=== PATIENT | female | born 2000 | race Caucasian/White ===

== ENCOUNTER 2019-03-02 12:24 | Emergency (ER) | payer SELFPAY ==
[2019-03-02] MEDS ORDERED: NA CHLORIDE 0.9% 1,000 ML ONE (13:19)
[2019-03-02 13:32] LABS: Absolute Lymphocytes (CBC) 1.4 K/uL (0.7-4.9); Absolute Monocytes 0.6 K/uL (0.1-1.3); Absolute Neutrophil 5.5 K/uL (1.8-8.0); Basophils % 0.5 % (0-1.3); Eosinophils % 7.1 % (0-4.4); Hematocrit 35.7 % (36.0-45.0); Lymphocytes % 17.1 % (15.3-44.8); MPV 10.3 fL (7.6-11.3); Monocytes % 6.9 % (3.3-12.3); RBC Red Blood Cell Count 4.03 M/uL (3.86-4.86)
[2019-03-02 13:37] LABS: Urine Blood 2+ (NEG); Urine Glucose NEGATIVE (NEG); Urine Protein NEGATIVE (NEG); Urine pH 8.5 (5.0-7.0)
[2019-03-02 13:58] LABS: BUN Blood Urea Nitrogen 7 mg/dL (7-18); Bicarbonate 26 mmol/L (21-32); Glucose Level 91 mg/dL (74-106); HCG, Quantitative 41600 mIU/mL (1-3); Potassium 3.7 mmol/L (3.5-5.1); Sodium Level 138 mmol/L (136-145)
--- NOTE | 2019-03-02 14:28 | ER ---
Nurse's Notes [facility] Name: Jaqueline Allan Age: 19 yrs Sex: Female : 2000 Arrival Date: 03/02/2019 Time: 12:28 Bed 23 Private MD: Diagnosis: Threatened ;Placenta previa Presentation: 03/02 12:36 Presenting complaint: Patient states: Im about three months and had some sg vaginal bleeding, heavy flow that began this morning, denies pain or blood clots at this time, describes the bleeding as being bright red at this time. Transition of care: patient was not received from another setting of care. Onset of symptoms was March 02, 2019. Risk Assessment: Do you want to hurt yourself or someone else? Patient reports no desire to harm self or others. Initial Sepsis Screen: Does the patient meet any 2 criteria? HR > 90 bpm. Does the patient have a suspected source of infection? No. Patient's initial sepsis screen is negative. Care prior to arrival: None. 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 - Social history:: Smoking status: Patient/guardian denies using tobacco. - Ebola Screening: : Patient negative for fever greater than or equal to 101.5 degrees Fahrenheit, and additional compatible Ebola Virus Disease symptoms Patient denies exposure to infectious person Patient denies travel to an Ebola-affected area in the 21 days before illness onset No symptoms or risks identified at this time. Screenin:11 Abuse screen: Denies threats or abuse. Denies injuries from another. Nutritional ca1 screening: No deficits noted. Tuberculosis screening: No symptoms or risk factors identified. Fall Risk IV access (20 points). Assessment: 13:11 General: Appears in no apparent distress. comfortable, Behavior is calm, cooperative, ca1 appropriate for age. Pain: Denies pain. Neuro: Level of Consciousness is awake, alert, obeys commands, Oriented to person, place, time, situation. Cardiovascular: Heart tones S1 S2 present Capillary refill < 3 seconds Patient's skin is warm and dry. Respiratory: Airway is patent Respiratory effort is even, unlabored, Respiratory pattern is regular, symmetrical. GI: Abdomen is round non-distended, Bowel sounds present X 4 quads. Abd is soft and non tender X 4 quads. : Reports vaginal bleeding that is bright red, heavy flow since today. EENT: No deficits noted. No signs and/or symptoms were reported regarding the EENT system. Derm: Skin is intact, is healthy with good turgor, Skin is pink, warm \T\ dry. Musculoskeletal: Circulation, motion, and sensation intact. Capillary refill < 3 seconds, Range of motion: intact in all extremities. 13:41 Reassessment: Patient appears in no apparent distress at this time. Patient and/or ca1 family updated on plan of care and expected duration. Pain level reassessed. Patient is alert, oriented x 3, equal unlabored respirations, skin warm/dry/pink. 13:45 Reassessment: Pt transported to Ultrasound via stretcher. ca1 14:22 Reassessment: Patient appears in no apparent distress at this time. Patient is alert, ca1 oriented x 3, equal unlabored respirations, skin warm/dry/pink. 15:08 Reassessment: Patient appears in no apparent distress at this time. Patient is alert, ca1 oriented x 3, equal unlabored respirations, skin warm/dry/pink. Dr. De La Cruz to explain diagnostic results. Vital Signs: 12:34 Temp 99.4; sg 12:34 BP 119 / 66; Pulse 115; Resp 17; Temp 99.4; Pulse Ox 99% on R/A; Weight 66.22 kg; sg Height 5 ft. 1 in. (154.94 cm); Pain 0/10; 13:41 BP 123 / 65; Pulse 86; Resp 17 S; Pulse Ox 100% on R/A; ca1 14:22 BP 103 / 68; Pulse 76; Resp 16 S; Pulse Ox 100% on R/A; ca1 15:08 BP 104 / 58; Pulse 84; Resp 16 S; Temp 99.5(O); Pulse Ox 100% on R/A; ca1 12:34 Body Mass Index 27.58 (66.22 kg, 154.94 cm) Vitals: 13:41 Heart Tones 152. ca1 ED Course: 12:28 Patient arrived in ED. rg4 12:33 Arm band placed on. sg 12:37 Triage completed. sg 12:57 Carlyle De La Cruz MD is Attending Physician. [facility] 13:00 Sarah Moreno, TONJA is Primary Nurse. ca1 13:11 Patient has correct armband on for positive identification. Placed in gown. Bed in low ca1 position. Call light in reach. Side rails up X 1. Pulse ox on. NIBP on. Warm blanket given. 13:11 Inserted saline lock: 20 gauge in right antecubital area, using aseptic technique. ca1 Blood collected. 14:00 US Transvaginal Ob In Process Unspecified. EDMS 14:26 Donald Lu MD is Referral Physician. delfina 15:10 No provider procedures requiring assistance completed. IV discontinued, intact, ca1 bleeding controlled, No redness/swelling at site. Pressure dressing applied. Administered Medications: 13:13 Drug: NS 0.9% 1000 ml Route: IV; Rate: 1 bolus; Site: right antecubital; ca1 14:30 Follow up: Response: No adverse reaction; IV Status: Completed infusion ca1 Outcome: 14:27 Discharge ordered by . delfina 15:11 Discharged to home ambulatory, with family. em 15:11 Condition: good 15:11 Discharge instructions given to patient, family, Instructed on discharge instructions, follow up and referral plans. medication usage, Demonstrated understanding of instructions, follow-up care, medications, Prescriptions given X 1. 15:12 Patient left the ED. em Signatures: Dispatcher [employer] EDMS David Abernathy, RN RN Carlyle Martinez MD MD cha Munoz, Edgar, AIR BAG CURER AIR BAG CURER Madelyn Harvey rg4 Sarah Moreno, RN RN ca1 Corrections: (The following items were deleted from the chart) 15:07 15:07 Reassessment: Patient appears in no apparent distress at this time. Patient is ca1 alert, oriented x 3, equal unlabored respirations, skin warm/dry/pink. Dr. De La Cruz at bedside to explain results of diagnostics ca1 15:10 15:06 BP 177 / 82; Pulse 54bpm; Resp 15bpm; Spontaneous; Pulse Ox 97% RA; ca1 ca1
--- NOTE | 2019-03-02 14:28 | EDPHYS ---
Physician Documentation [facility] Name: Jaqueline Allan Age: 19 yrs Sex: Female : 2000 Arrival Date: 03/02/2019 Time: 12:28 Bed 23 Private MD: ED Physician Carlyle De La Cruz HPI: 03/02 13:49 This 19 yrs old Female presents to ER via Ambulatory with complaints of [facility] Vaginal Bleeding, + Preg <12wks. 13:49 The patient presents to the emergency department with vaginal bleeding. The estimated [facility] gestational age is 14 weeks. course: care: private OB physician. Associated signs and symptoms: The patient has no apparent associated signs or symptoms. 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 - Social history:: Smoking status: Patient/guardian denies using tobacco. - Ebola Screening: : Patient negative for fever greater than or equal to 101.5 degrees Fahrenheit, and additional compatible Ebola Virus Disease symptoms Patient denies exposure to infectious person Patient denies travel to an Ebola-affected area in the 21 days before illness onset No symptoms or risks identified at this time. ROS: 13:50 Constitutional: Negative for fever, chills, and weight loss, Eyes: Negative for injury, delfina pain, redness, and discharge, ENT: Negative for injury, pain, and discharge, Neck: Negative for injury, pain, and swelling, Cardiovascular: Negative for chest pain, palpitations, and edema, Respiratory: Negative for shortness of breath, cough, wheezing, and pleuritic chest pain, Abdomen/GI: Negative for abdominal pain, nausea, vomiting, diarrhea, and constipation, Back: Negative for injury and pain, MS/Extremity: Negative for injury and deformity, Skin: Negative for injury, rash, and discoloration, Neuro: Negative for headache, weakness, numbness, tingling, and seizure, Psych: Negative for depression, anxiety, suicide ideation, homicidal ideation, and hallucinations, Allergy/Immunology: Negative for hives, rash, and allergies, Endocrine: Negative for neck swelling, polydipsia, polyuria, polyphagia, and marked weight changes. 13:50 : Positive for vaginal bleeding. Exam: 13:50 Constitutional: This is a well developed, well nourished patient who is awake, alert, delfina and in no acute distress. Head/Face: Normocephalic, atraumatic. Eyes: Pupils equal round and reactive to light, extra-ocular motions intact. Lids and lashes normal. Conjunctiva and sclera are non-icteric and not injected. Cornea within normal limits. Periorbital areas with no swelling, redness, or edema. ENT: Nares patent. No nasal discharge, no septal abnormalities noted. Tympanic membranes are normal and external auditory canals are clear. Oropharynx with no redness, swelling, or masses, exudates, or evidence of obstruction, uvula midline. Mucous membranes moist. Neck: Trachea midline, no thyromegaly or masses palpated, and no cervical lymphadenopathy. Supple, full range of motion without nuchal rigidity, or vertebral point tenderness. No Meningismus. Chest/axilla: Normal chest wall appearance and motion. Nontender with no deformity. No lesions are appreciated. Cardiovascular: Regular rate and rhythm with a normal S1 and S2. No gallops, murmurs, or rubs. Normal PMI, no JVD. No pulse deficits. Respiratory: Lungs have equal breath sounds bilaterally, clear to auscultation and percussion. No rales, rhonchi or wheezes noted. No increased work of breathing, no retractions or nasal flaring. Abdomen/GI: Soft, non-tender, with normal bowel sounds. No distension or tympany. No guarding or rebound. No evidence of tenderness throughout. Back: No spinal tenderness. No costovertebral tenderness. Full range of motion. Skin: Warm, dry with normal turgor. Normal color with no rashes, no lesions, and no evidence of cellulitis. MS/ Extremity: Pulses equal, no cyanosis. Neurovascular intact. Full, normal range of motion. Neuro: Awake and alert, GCS 15, oriented to person, place, time, and situation. Cranial nerves II-XII grossly intact. Motor strength 5/5 in all extremities. Sensory grossly intact. Cerebellar exam normal. Normal gait. Psych: Awake, alert, with orientation to person, place and time. Behavior, mood, and affect are within normal limits. Vital Signs: 12:34 Temp 99.4; sg 12:34 BP 119 / 66; Pulse 115; Resp 17; Temp 99.4; Pulse Ox 99% on R/A; Weight 66.22 kg; sg Height 5 ft. 1 in. (154.94 cm); Pain 0/10; 13:41 BP 123 / 65; Pulse 86; Resp 17 S; Pulse Ox 100% on R/A; ca1 14:22 BP 103 / 68; Pulse 76; Resp 16 S; Pulse Ox 100% on R/A; ca1 15:08 BP 104 / 58; Pulse 84; Resp 16 S; Temp 99.5(O); Pulse Ox 100% on R/A; ca1 12:34 Body Mass Index 27.58 (66.22 kg, 154.94 cm) sg MDM: 12:57 Patient medically screened. [facility] 13:51 Data reviewed: vital signs, nurses notes, lab test result(s), radiologic studies, delfina ultrasound. 03/02 12:59 Order name: Quantitative Hcg; Complete Time: 14:25 [facility] 03/02 12:59 Order name: Abo/rh Typing; Complete Time: 14:25 [facility] 03/02 12:59 Order name: Basic Metabolic Panel; Complete Time: 14:25 [facility] 03/02 12:59 Order name: CBC with Diff; Complete Time: 13:59 [facility] 03/02 13:18 Order name: Urine Dipstick--Ancillary (enter results); Complete Time: 13:59 [place] 03/02 13:18 Order name: Urine --Ancillary (enter results); Complete Time: 13:59 [place] 03/02 12:59 Order name: Urine Test (obtain specimen); Complete Time: 13:09 [facility] 03/02 12:59 Order name: IV Saline Lock; Complete Time: 13:14 [facility] 03/02 12:59 Order name: Labs collected and sent; Complete Time: 13:15 [facility] 03/02 12:59 Order name: NPO; Complete Time: 13:15 [facility] 03/02 12:59 Order name: Urine Dipstick-Ancillary (obtain specimen); Complete Time: 13:09 [facility] 03/02 12:59 Order name: US Transvaginal Ob delfina Administered Medications: 13:13 Drug: NS 0.9% 1000 ml Route: IV; Rate: 1 bolus; Site: right antecubital; ca1 14:30 Follow up: Response: No adverse reaction; IV Status: Completed infusion ca1 Disposition: 03/02/19 14:27 Discharged to Home. Impression: Threatened , Placenta previa. - Condition is Stable. - Discharge Instructions: Threatened Miscarriage, Vaginal Bleeding During , Second Trimester, Threatened Miscarriage, [id number], Pelvic Rest, Vaginal Bleeding During , Second Trimester, [id number]. - Prescriptions for Vitamin 27- 0.8 mg Oral Tablet - take 1 tablet by ORAL route once daily; 30 tablet. - Medication Reconciliation Form, Thank You Letter, Antibiotic Education, Prescription Opioid Use form. - Follow up: Private Physician; When: 2 - 3 days; Reason: Recheck today's complaints, Continuance of care, Re-evaluation by your physician. Follow up: Donald Lu; When: 2 - 3 days; Reason: Recheck today's complaints, Re-evaluation by your physician. - Problem is new. - Symptoms have improved. Signatures: Dispatcher [employer] EDDavid Irvin, RN RN Carlyle Martinez MD MD cha Munoz, Edgar, VICE PRESIDENT RESIDENTIAL [employer] SALES VICE PRESIDENT [employer]IDENTIAL [employer] SALES em Sarah Moreno RN RN ca1 Corrections: (The following items were deleted from the chart) 15:12 14:27 03/02/2019 14:27 Discharged to Home. Impression: Threatened ; Placenta em previa. Condition is Stable. Discharge Instructions: Threatened Miscarriage, Vaginal Bleeding During , Second Trimester, Threatened Miscarriage, [id number], Pelvic Rest, Vaginal Bleeding During , Second Trimester, [id number]. Prescriptions for Vitamin 27-0.8 mg Oral Tablet - take 1 tablet by ORAL route once daily; 30 tablet. and Forms are Medication Reconciliation Form, Thank You Letter, Antibiotic Education, Prescription Opioid Use. Follow up: Private Physician; When: 2 - 3 days; Reason: Recheck today's complaints, Continuance of care, Re-evaluation by your physician. Follow up: Donald Lu; When: 2 - 3 days; Reason: Recheck today's complaints, Re-evaluation by your physician. Problem is new. Symptoms have improved. delfina
--- NOTE | 2019-03-02 14:37 | RAD REPORT ---
EXAM DESCRIPTION: US - Transvaginal OB - 03/02/2019 2:08 pm CLINICAL HISTORY: Abdominal pain, , cramping COMPARISON: None. FINDINGS: A single cephalic presenting gestation is identified. Four-chamber heart view is grossly n ormal for age. Heart rate normal. The intracranial contents and spine are grossly normal. Anato judi assessment is limited at 14 week gestational age. Anatomy is as expected. I measurements are as follows: BPD:2.55 Centimeters 14 weeks 3 days HC:9.62 Centimeters 14 weeks 3 days AC:7.74 Centimeters 14 weeks 1 day HL:1.42 Centimeters 13 weeks 6 days FL:1.26 Centimeters 13 weeks 5 days The estimated gestational age (EGA) is 14 weeks 1 day with an PIYUSH of 08/30/2019. ratios are no rmal or within acceptable limits. The placenta is grade 0, posterior in location. Placenta is low lyi ng. The amniotic fluid volume is normal. No maternal adnexal abnormality. IMPRESSION: 1. Single gestation with an EGA of 14 weeks 1 day and an PIYUSH of the 08/30/2019. 2. No abnormalities are identifiable. ratios are normal or within acceptable limits. 3. Grade 0, posterior placenta with placenta low-lying. Follow-up sonography subsequent in can evaluate for the usual superior migration with uterine growth. . 4. Amniotic fluid volume is normal.
== END 2019-03-02 15:12 | disposition home or self-care (01) ==
LOC: ER 12:24
DX: O20.0 Threatened abortion (principal); O44.12 Complete placenta previa with hemorrhage, second trimester; Z3A.14 14 weeks gestation of pregnancy
CPT/HCPCS: 36415; 76817; 80048; 81003; 81025; 84702; 85025; 86900; 86901; 96360; 99284; J7030

== ENCOUNTER 2019-05-15 09:10 | Emergency (ER) | payer OTHER, SELFPAY ==
--- OUTSIDE RECORDS SUMMARY | 2019-05-15 09:12 | XMS REPORT ---
:2000 [facility] Address [address] [place] [address] Care Team Providers Name Role Phone Unavailable Unavailable Unavailable Problems This patient has no known problems. Allergies, Adverse Reactions, Alerts This patient has no known allergies or adverse reactions. Medications This patient has no known medications.
--- OUTSIDE RECORDS SUMMARY | 2019-05-15 09:12 | XMS REPORT | Summary of Care ---
:2000 Author Organization [facility] Address [address] [place] [id number] Care Team Providers Name Role Phone Pcp, Patient Does Not Have A Unavailable Pcp, Patient Does Not Have A Primary Care Provider Reason for Visit Reason Comments New OB Visit Vaginal Discharge Encounter Details Date Type Department Care Team Description 04/20/2019 Initial [facility] McfarlaneLis MD Supervision of high-risk of young primigravida (Primary Dx); Visit Healthcare- [address] [place] [address] Vaginal discharge; Yoan NEWMAN 21 weeks gestation of [address] [place] [address] [address] [place] [address] [phone] Allergies No Known Allergiesdocumented as of this encounter (statuses as of 04/22/2019) Medications Medication Sig Dispensed Refills Start Date End Date Status 25/iron Take by mouth. 0 Active fum/folic/dha (-1 ORAL) documented as of this encounter (statuses as of 04/22/2019) Active Problems Estimated Date of Delivery Comments Yes 08/31/2019 No additional problems on filedocumented as of this encounter (statuses as of ) Social History Tobacco Use Types Packs/Day Years Used Date Never Smoker Smokeless Tobacco: Never Used Alcohol Use Drinks/Week oz/Week Comments Not Currently Estimated Date of Delivery Comments Yes 08/31/2019 Sex Assigned at Date Recorded Not on file Job Start Date Occupation Industry Not on file Not on file Not on file Travel History Travel Start Travel End No recent travel history available. documented as of this encounter Last Filed Vital Signs Vital Sign Reading Time Taken Comments Blood Pressure 123/71 04/20/2019 2:58 PM CDT Pulse 82 04/20/2019 2:58 PM CDT Temperature 36.7 C (98 F) 04/20/2019 2:58 PM CDT Respiratory Rate 18 04/20/2019 2:58 PM CDT Oxygen Saturation - - Inhaled Oxygen Concentration - - Weight 68.3 kg (150 lb 9.6 oz) 04/20/2019 2:58 PM CDT Height 154.9 cm (5' 1") 04/20/2019 2:58 PM CDT Body Mass Index 28.46 04/20/2019 2:58 PM CDT documented in this encounter Progress Notes Lis Mcfarlane MD - 04/20/2019 2:15 PM CDT Chief complaint: Chief Complaint Patient presents with New OB Visit Vaginal Discharge HPI Jaqueline Allan is a 19 year old female @ 21w2d by reported PIYUSH presented for [facility], transfer care from [place]. States that has been uncomplicated so far. PIYUSH 08/31/19 based on USG. States that she had anatomy scan last month and was wnl. Histories OB History Para Term AB Living 1 SAB TAB Ectopic Multiple Live Births # Outcome Date GA Lbr Hosea/2nd Weight Sex Delivery Anes PTL Lv 1 Current Past Medical History: Diagnosis Date Genital herpes 2017 1 & 2 History reviewed. No pertinent family history. No family status information on file. Past Surgical History: Procedure Laterality Date APPENDECTOMY Social History Socioeconomic History Marital status: Single Spouse name: Not on file Number of children: Not on file Years of education: Not on file Highest education level: Not on file Occupational History Not on file Social Needs Financial resource strain: Not on file Food insecurity: Worry: Not on file Inability: Not on file Transportation needs: Medical: Not on file Non-medical: Not on file Tobacco Use Smoking status: Never Smoker Smokeless tobacco: Never Used Substance and Sexual Activity Alcohol use: Not Currently Drug use: Never Sexual activity: Yes Partners: Male Lifestyle Physical activity: Days per week: Not on file Minutes per session: Not on file Stress: Not on file Relationships Social connections: Talks on phone: Not on file Gets together: Not on file Attends taoist service: Not on file Active member of club or organization: Not on file Attends meetings of clubs or organizations: Not on file Relationship status: Not on file Intimate partner violence: Fear of current or ex partner: Not on file Emotionally abused: Not on file Physically abused: Not on file Forced sexual activity: Not on file Other Topics Concern Not on file Social History Narrative Not on file Social History Substance and Sexual Activity Sexual Activity Yes Partners: Male Genetic Screen Autism / Mental Retardation: No Pati Disease: No Congenital Heart Defect: No Cystic Fibrosis: No Down Syndrome: No Familial Dysautonomia: No Hemophilia or other Blood Disorders: No [place] Chorea: No Maternal Metabolic Disorder--specify (eg. Type 1 Diabetes, PKU): No Muscular Dystrophy: No Neural Tube Defect: No Recurrent Loss or a Stillbirth: No Sickle Cell Disease or Trait: No Coy Sachs: No Teratological Substances (specify type & strength/dose) since LMP: No Thalassemia: No Other Inherited Genetic or Chromosomal Disorder (specify): No No Significant History of Genetic Disorders: No Significant History of Genetic Disorders Labs None available Radiology None available Allergies Jaqueline has No Known Allergies. Medications Jaqueline has a current medication list which includes the following prescription (s): 25/iron fum/folic/dha. Review of Systems Constitutional: Negative for chills, fatigue and fever. HENT: Negative for congestion, rhinorrhea, sneezing and sore throat. Respiratory: Negative for cough, chest tightness, shortness of breath and wheezing. Breasts: Negative for discharge, mass, pain and unequal size. Cardiovascular: Negative for chest pain and palpitations. Gastrointestinal: Negative for abdominal distention, abdominal pain, anal bleeding, blood in stool, constipation, diarrhea, nausea and vomiting. Genitourinary: Positive for vaginal discharge. Negative for dysuria, urgency, frequency and vaginal bleeding. Hx of cold sores in the past; denies ever having genital outbreaks, never been tested for herpes Musculoskeletal: Negative for gait problem. Skin: Negative for rash. Neurological: Negative for syncope, light-headedness and headaches. Psychiatric/Behavioral: Negative for dysphoric mood, self-injury and suicidal ideas. Hematological: Does not bruise/bleed easily. BP 123/71 (BP Location: Right arm, Patient Position: Sitting, BP CUFF SIZE: Adult Medium) | Pulse 82 | Temp 36.7 C (98 F) (Oral) | Resp 18 | Ht 5' 1 " (1.549 m) | Wt 150 lb 9.6 oz (68.3 kg) | LMP 11/24/2018 (Approximate) | BMI 28.46 kg/m Pregravid BMI: 27.4 Physical Exam Vitals reviewed. Constitutional: She is oriented to person, place, and time. She appears well- developed and well-nourished. Cardiovascular: Regular rate and rhythm. Pulmonary/Chest: Normal inspiratory effort. Abdominal: Abdomen is soft. No tenderness present. No hernia palpated or inspected. Neuro/Psychiatric: She has a normal mood and affect. She is oriented to person, place, and time. Skin: Skin normal. No rash present. External genitalia: Normal external genitalia appropriate for age. Urethral meatus: Normal urethral meatus Urethra: Normal urethra. Bladder: Normal bladder Vagina:Vaginal discharge found. Cervix: Normal cervix. Uterus: Uterus is enlarged (gravid, ~ 20 wks). Assessment/Plan See OB Summary Return to clinic in 4 weeks. Reviewed patient instructions and provided printed copy. Activity restrictions: As tolerated at 21w2d This visit did not involve counseling and coordination that comprised more than 50% of the visit time. Lis Mcfarlane MD 04/22/2019 4:21 PM documented in this encounter Plan of Treatment Date Type Specialty Care Team Description 05/18/2019 Routine Obstetrics & May Camacho, [facility] [address] [place] [phone] Health Maintenance Due Date Last Done Comments MENINGOCOCCAL B VACCINES (1 of 2 - 2009 Risk Bexsero 2-dose series) VARICELLA VACCINES (1 of 2 - 13+ 02/01/2012 2-dose series) HPV VACCINES (1 - Female 3-dose 2014 series) CHLAMYDIA SCREENING 2015 DTaP,Tdap,and Td Vaccines (1 - 2018 Tdap) INFLUENZA VACCINE 05/21/2019 MENINGOCOCCAL VACCINE Aged Out No longer eligible based on patient's age to complete this topic PNEUMOCOCCAL 0-64 YEARS COMBINED Aged Out No longer eligible based on SERIES patient's age to complete this topic documented as of this encounter Procedures Procedure Name Priority Date/Time Associated Comments Diagnosis GALV ONLY - VAGINAL Routine 04/20/2019 3:50 PM Vaginal discharge Results for this PATHOGENS BY DNA CDT procedure are in PROBE the results section. POCT URINALYSIS W/O Routine 04/20/2019 3:17 PM 21 weeks gestation Results for this SPECIFIC GRAVITY CDT of procedure are in the results section. POCT TEST Routine 04/20/2019 3:16 PM Vaginal discharge Results for this CDT 21 weeks gestation procedure are in of the results section. documented in this encounter Results GALV ONLY - VAGINAL PATHOGENS BY DNA PROBE (04/20/2019 3:50 PM CDT) Pathologist [facility] Trichomonas vaginalis Negative Negative [facility] Gardnerella vaginalis Negative Negative [facility] Rut species Negative Negative [facility] Specimen Fluid - VAGINA Performing Organization Address City/State/Zipcode Phone Number [facility] CLIA: [id number], [address] [place] [phone] [facility] POCT URINALYSIS W/O SPECIFIC GRAVITY (04/20/2019 3:17 PM CDT) POCT PH U 5 5 - 8 mg/dl POCT U LEUK EST Negative Negative - Negative POCT U NIT Negative Negative - Negative POCT U PROT Negative Negative - Negative POCT U GLU 1+ Negative - Negative POCT U KETONE Negative Negative - Negative POCT U BLD Negative Negative - Negative Specimen Urine - URINE, CLEAN CATCH POCT TEST (04/20/2019 3:16 PM CDT) POCT PREG Positive On board controls acceptable Yes with C Line POCT PREG LOT # [id number] POCT PREG TEST DATE 07/20/2020 Specimen Urine - URINE, CLEAN CATCH documented in this encounter Visit Diagnoses Diagnosis Supervision of high-risk of young primigravida - Primary Vaginal discharge Leukorrhea, not specified as infective 21 weeks gestation of state, incidental documented in this encounter Insurance Payer Benefit Plan / Subscriber ID Effective Dates Phone Address Type Group [employer] MEDICAID OF xxxxxxxxx 2019-Present [phone] [address] Medicaid [place] [id number] [place] [phone] documented as of this encounter
[2019-05-15] MEDS ORDERED: LIDOCAINE 1% MPF 5 ML VIAL ONE (09:28)
[2019-05-15] MEDS ORDERED: NA CHLORIDE 0.9% 1,000 ML ONE (09:40)
[2019-05-15] MEDS ORDERED: PROMETHAZINE 25 MG/ML VIAL ONE (09:40)
[2019-05-15 09:58] LABS: Absolute Lymphocytes (CBC) 0.4 K/uL (0.7-4.9); Basophils % 0.3 % (0-1.3); Lymphocytes % 4.6 % (15.3-44.8); MPV 9.6 fL (7.6-11.3); RBC Red Blood Cell Count 3.72 M/uL (3.86-4.86)
[2019-05-15 10:10] LABS: BUN Blood Urea Nitrogen 9 mg/dL (7-18); Bicarbonate 25 mmol/L (21-32); Glucose Level 87 mg/dL (74-106); Potassium 3.8 mmol/L (3.5-5.1); Sodium Level 139 mmol/L (136-145)
--- NOTE | 2019-05-15 10:54 | ER ---
Nurse's Notes [facility] Name: Jaqueline Allan Age: 19 yrs Sex: Female : 2000 Arrival Date: 05/15/2019 Time: 09:13 Bed 15 Private MD: Diagnosis: Nausea and vomiting;Diarrhea, unspecified Presentation: 05/15 09:31 Presenting complaint: Patient states: N/V/D x 1 day, approx 24 weeks , denies ph pain or fever. Transition of care: patient was not received from another setting of care. Onset of symptoms was May 15, 2019. Risk Assessment: Do you want to hurt yourself or someone else? Patient reports no desire to harm self or others. Initial Sepsis Screen: Does the patient meet any 2 criteria? No. Patient's initial sepsis screen is negative. Does the patient have a suspected source of infection? No. Patient's initial sepsis screen is negative. Care prior to arrival: None. 09:31 Method Of Arrival: Ambulatory 09:31 Acuity: BROOKS 3 ph MAT ROLLER: 09:33 Verified ph Historical: - Allergies: 09:34 No Known Allergies; ph - Home Meds: 09:34 Vitamin Oral [Active]; ph - PMHx: 09:34 None; ph - PSHx: 09:34 Appendectomy; ph - Immunization history:: Adult Immunizations unknown. - Social history:: Smoking status: Patient/guardian denies using tobacco. - Ebola Screening: : No symptoms or risks identified at this time. Screenin:37 Abuse screen: Denies threats or abuse. Denies injuries from another. Nutritional ph screening: No deficits noted. Tuberculosis screening: No symptoms or risk factors identified. Fall Risk None identified. Assessment: 09:34 General: Appears in no apparent distress. comfortable, well groomed, Behavior is calm, ph cooperative, appropriate for age, Denies fever. Pain: Denies pain. Neuro: Level of Consciousness is awake, alert, obeys commands, Oriented to person, place, time, situation. Cardiovascular: Capillary refill < 3 seconds in bilateral fingers Patient's skin is warm and dry. Respiratory: Airway is patent Respiratory effort is even, unlabored, Respiratory pattern is regular, symmetrical. GI: Abdomen is round Reports diarrhea, nausea, vomiting, Patient currently denies abdominal pain. : Denies pain in suprapubic area vaginal bleeding. Derm: Skin is intact, is healthy with good turgor, Skin is pink, warm \T\ dry. Musculoskeletal: Circulation, motion, and sensation intact. Range of motion: intact in all extremities. 11:15 Reassessment: Patient appears in no apparent distress at this time. Patient and/or ph family updated on plan of care and expected duration. Pain level reassessed. Patient is alert, oriented x 3, equal unlabored respirations, skin warm/dry/pink. Patient states feeling better. Patient states symptoms have improved. Vital Signs: 09:33 BP 121 / 65; Pulse 99; Resp 18; Temp 97.9; Pulse Ox 100% on R/A; Weight 72.57 kg; ph 10:24 BP 100 / 74; Pulse 80; Resp 18; Pulse Ox 100% on R/A; ph 11:15 BP 104 / 76; Pulse 85; Resp 16; Temp 98.0; Pulse Ox 100% on R/A; ph Vitals: 10:24 Heart Tones 158. ph ED Course: 09:13 Patient arrived in ED. mr 09:24 Jose AYeMakayla, RICO is PHCP. kb 09:24 Carlyle De La Cruz MD is Attending Physician. kb 09:26 Melba Shin RN is Primary Nurse. ph 09:33 Triage completed. ph 09:34 Arm band placed on Patient placed in an exam room, on a stretcher, on pulse oximetry. ph 09:37 Patient has correct armband on for positive identification. Bed in low position. Call ph light in reach. Side rails up X 1. Pulse ox on. NIBP on. Door closed. Noise minimized. Warm blanket given. Head of bed elevated. 09:50 Initial lab(s) drawn, by me, sent to lab. Inserted saline lock: 22 gauge in right ph antecubital area, using aseptic technique. Blood collected. 11:12 Urine collected: clean catch specimen, clear. mh5 11:15 No provider procedures requiring assistance completed. IV discontinued, intact, ph bleeding controlled, No redness/swelling at site. Pressure dressing applied. Administered Medications: 09:53 Drug: NS 0.9% 1000 ml Route: IV; Rate: 1000 ml; Site: right antecubital; ph 11:00 Follow up: Response: No adverse reaction; IV Status: Completed infusion; IV Intake: ph 1000ml 09:56 Drug: Phenergan 12.5 mg Route: IVP; Site: right antecubital; ph 10:22 Follow up: Response: No adverse reaction; Nausea is decreased ph Intake: 11:00 IV: 1000ml; Total: 1000ml. ph Outcome: 10:50 Discharge ordered by . kb 11:18 Patient left the ED. iw 11:18 Discharged to home ambulatory. ph 11:18 Condition: good 11:18 Discharge instructions given to patient, Instructed on discharge instructions, follow up and referral plans. Demonstrated understanding of instructions, follow-up care. Signatures: Makayla Naranjo, SUSHMA-C CORPORATE COMPLIANCE MANAGER-Chloé Moya Irene, RN RN Melba Shin RN RN Mary Lockwood [facility]
[2019-05-15 10:55] LABS: Blood Morphology Comment NOT SEEN (NOT SEEN); Platelet Estimate ADEQ; Urine White Blood Cell Casts OK
--- NOTE | 2019-05-15 10:55 | EDPHYS ---
Physician Documentation [facility] Name: Jaqueline Allan Age: 19 yrs Sex: Female : 2000 Arrival Date: 05/15/2019 Time: 09:13 Bed 15 Private MD: ED Physician Carlyle De La Cruz HPI: 05/15 10:21 This 19 yrs old Female presents to ER via Ambulatory with complaints of 24 kb wks , Vomiting. 10:21 The patient presents to the emergency department with nausea, vomiting, diarrhea. kb Onset: The symptoms/episode began/occurred yesterday. Possible causes: bad food exposure, left overs from 4 days ago. The symptoms are aggravated by nothing. The symptoms are alleviated by nothing. Associated signs and symptoms: Pertinent positives: diarrhea, nausea, vomiting, Pertinent negatives: abdominal pain. Severity of symptoms: At their worst the symptoms were moderate in the emergency department the symptoms are unchanged. The patient has not experienced similar symptoms in the past. The patient has not recently seen a physician. 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 - Social history:: Smoking status: Patient/guardian denies using tobacco. - Ebola Screening: : No symptoms or risks identified at this time. ROS: 10:20 Constitutional: Negative for fever, chills, and weight loss, ENT: Negative for injury, kb pain, and discharge, Neck: Negative for injury, pain, and swelling, Cardiovascular: Negative for chest pain, palpitations, and edema, Respiratory: Negative for shortness of breath, cough, wheezing, and pleuritic chest pain, Back: Negative for injury and pain, : Negative for injury, bleeding, discharge, and swelling, MS/Extremity: Negative for injury and deformity, Skin: Negative for injury, rash, and discoloration, Neuro: Negative for headache, weakness, numbness, tingling, and seizure. 10:20 Abdomen/GI: Positive for nausea, vomiting, and diarrhea, Negative for abdominal pain. Exam: 10:20 Constitutional: This is a well developed, well nourished patient who is awake, alert, kb and in no acute distress. Head/Face: Normocephalic, atraumatic. Chest/axilla: Normal chest wall appearance and motion. Nontender with no deformity. No lesions are appreciated. Cardiovascular: Regular rate and rhythm with a normal S1 and S2. No gallops, murmurs, or rubs. Normal PMI, no JVD. No pulse deficits. Respiratory: Lungs have equal breath sounds bilaterally, clear to auscultation and percussion. No rales, rhonchi or wheezes noted. No increased work of breathing, no retractions or nasal flaring. Back: No spinal tenderness. No costovertebral tenderness. Full range of motion. Skin: Warm, dry with normal turgor. Normal color with no rashes, no lesions, and no evidence of cellulitis. MS/ Extremity: Pulses equal, no cyanosis. Neurovascular intact. Full, normal range of motion. Neuro: Awake and alert, GCS 15, oriented to person, place, time, and situation. Cranial nerves II-XII grossly intact. Motor strength 5/5 in all extremities. Sensory grossly intact. Cerebellar exam normal. Normal gait. 10:20 Abdomen/GI: Inspection: gravid appearance, is noted, Bowel sounds: normal, Palpation: soft, in all quadrants, nontender, in all quadrants. Vital Signs: 09:33 BP 121 / 65; Pulse 99; Resp 18; Temp 97.9; Pulse Ox 100% on R/A; Weight 72.57 kg; ph 10:24 BP 100 / 74; Pulse 80; Resp 18; Pulse Ox 100% on R/A; ph 11:15 BP 104 / 76; Pulse 85; Resp 16; Temp 98.0; Pulse Ox 100% on R/A; ph MDM: 09:25 Patient medically screened. kb 09:59 Data reviewed: vital signs, nurses notes. Data interpreted: Pulse oximetry: on room air kb is 100 %. Interpretation: normal. 10:31 Counseling: I had a detailed discussion with the patient and/or guardian regarding: the kb historical points, exam findings, and any diagnostic results supporting the discharge/admit diagnosis, the need for outpatient follow up, a family practitioner, to return to the emergency department if symptoms worsen or persist or if there are any questions or concerns that arise at home. 05/15 09:31 Order name: Basic Metabolic Panel; Complete Time: 10:18 kb 05/15 09:31 Order name: CBC with Diff; Complete Time: 10:58 kb 05/15 10:56 Order name: CBC Smear Scan; Complete Time: 10:58 EDIL 05/15 11:00 Order name: Urine Dipstick--Ancillary (enter results) bd 05/15 09:31 Order name: IV Saline Lock; Complete Time: 09:53 kb 05/15 09:31 Order name: Labs collected and sent; Complete Time: 09:53 kb 05/15 10:19 Order name: PO challenge; Complete Time: 10:42 kb 05/15 10:19 Order name: Urine Dipstick-Ancillary (obtain specimen); Complete Time: 10:42 kb Administered Medications: 09:53 Drug: NS 0.9% 1000 ml Route: IV; Rate: 1000 ml; Site: right antecubital; ph 11:00 Follow up: Response: No adverse reaction; IV Status: Completed infusion; IV Intake: ph 1000ml 09:56 Drug: Phenergan 12.5 mg Route: IVP; Site: right antecubital; ph 10:22 Follow up: Response: No adverse reaction; Nausea is decreased ph Disposition: 05/15/19 10:50 Discharged to Home. Impression: Nausea and vomiting, Diarrhea, unspecified. - Condition is Stable. - Discharge Instructions: Food Choices to Help Relieve Diarrhea, Adult, Nausea and Vomiting, Adult, [id number], Diarrhea, Adult, [id number]. - Medication Reconciliation Form, Thank You Letter, Antibiotic Education, Prescription Opioid Use form. - Work release form (05/15/19 11:21). ph - Follow up: Emergency Department; When: As needed; Reason: Worsening of condition. Follow up: Private Physician; When: 2 - 3 days; Reason: Recheck today's complaints, Continuance of care, Re-evaluation by your physician. Addendum: 05/16/2019 20:31 Co-signature as Attending Physician, Carlyle De La Cruz MD I agree with the assessment and c ramos plan of care. Signatures: Dispatcher [employer] EDMakayla Puente, METALLURGICAL ENGINEERING TEACHER-C METALLURGICAL ENGINEERING TEACHER-Carlyle Mustafa MD MD cha Williams, Irene RN RN Melba Shin RN RN ph Corrections: (The following items were deleted from the chart) 05/15 11:18 10:50 05/15/2019 10:50 Discharged to Home. Impression: Nausea and vomiting; Diarrhea, iw unspecified. Condition is Stable. Discharge Instructions: Food Choices to Help Relieve Diarrhea, Adult, Nausea and Vomiting, Adult, [id number], Diarrhea, Adult, [id number]. Forms are Medication Reconciliation Form, Thank You Letter, Antibiotic Education, Prescription Opioid Use. Follow up: Emergency Department; When: As needed; Reason: Worsening of condition. Follow up: Private Physician; When: 2 - 3 days; Reason: Recheck today's complaints, Continuance of care, Re-evaluation by your physician. kb
[2019-05-15 11:27] LABS: Urine Blood NEGATIVE (NEG); Urine Glucose NEGATIVE (NEG); Urine Protein TRACE (NEG); Urine pH 8.5 (5.0-7.0)
== END 2019-05-15 11:18 | disposition home or self-care (01) ==
LOC: ER 09:10
DX: O21.9 Vomiting of pregnancy, unspecified (principal); Z3A.24 24 weeks gestation of pregnancy; R19.7 Diarrhea, unspecified
CPT/HCPCS: 96361; 85025; 80048; 36415; 81003; 96374; 99284; J2550; J7030